=== PATIENT | female | born 1995 | race African-American/Black ===

== ENCOUNTER 2017-07-09 14:53 | Emergency (ER) | payer OTHER ==
[~2017-07-09] VITALS: Ht 175.3 cm; Wt 90.7 kg
--- NOTE | 2017-07-09 15:41 | NUR ---
SELF PRESENT TO ED DT NOSE BLEED- 4X SINCE 0900 TODAY. PATIENT REPORTED LIGHTHEADEDNESS. VSS.
--- NOTE | 2017-07-09 15:41 | NUR ---
JHONNY BURNS AT BS
[2017-07-09 16:07] VITALS: BP 130/80
--- NOTE | 2017-07-09 16:07 | NUR ---
Patient discharged to home in stable condition. Written and verbal after care instructions given. Patient verbalizes understanding of instruction.
== END 2017-07-09 16:08 | disposition home or self-care (01) ==
LOC: ER 15:06
DX: R04.0 Epistaxis (principal)
CPT/HCPCS: 99281; A4606; Z7610; Z7502

== ENCOUNTER 2017-08-09 15:13 | Emergency (ER) | payer OTHER ==
[~2017-08-09] VITALS: Ht 175.3 cm; Wt 90.7 kg
[2017-08-09 15:19] VITALS: BP 124/70
== END 2017-08-09 15:39 | disposition home or self-care (01) ==
LOC: ER 15:19
DX: R51 Headache (principal); J32.9 Chronic sinusitis, unspecified
CPT/HCPCS: 99283; A4606; Z7610